=== PATIENT | male | born 1980 | race American Indian/Alaskan Native ===

== ENCOUNTER 2018-02-06 17:42 | Emergency (ER) | payer OTHER ==
[2018-02-06 18:00] VITALS: BP 124/75; PULSE 78; RESP 18; TEMP 97.6; O2SAT 100
[2018-02-06] MEDS ORDERED: Naproxen 500 MG TAB PO STA (18:09)
--- NOTE | 2018-02-06 18:09 | ED PDOC ---
Lower Extremity Pain/Injury Time Seen by Provider: 02/06/18 18:07 Chief Complaint (Nursing): Lower Extremity Problem/Injury Chief Complaint (Provider): LEFT FOOT PAIN History Per: Patient (37 Y/O MALE HERE WITH ONGOING LEFT FOOT PAIN. STATES HE NOTED PAIN 4 DAYS AGO AND HAS HAD HARD TIME BEARING WEIGHT ON FOOT. DENIES ANY TRAUMA. ) Past Medical History Reviewed: Historical Data, Nursing Documentation, Vital Signs Vital Signs: Last Vital Signs Temp 97.6 F 02/06/18 17:56 Pulse 78 02/06/18 17:56 Resp 18 02/06/18 17:56 BP 124/75 02/06/18 17:56 Pulse Ox 100 02/06/18 17:56 - Family History Family History: States: No Known Family Hx - Home Medications Home Medications: Ambulatory Orders Medication Instructions Recorded Naproxen 375 mg PO Q8 PRN #21 tablet 02/06/18 - Allergies Allergies/Adverse Reactions: Allergies Allergy/AdvReac Type Severity Reaction Status Date / Time No Known Allergies Allergy Verified 02/06/18 17:56 Review of Systems ROS Statement: Except As Marked, All Systems Reviewed And Found Negative Musculoskeletal: Positive for: Foot Pain Physical Exam - Reviewed Nursing Documentation Reviewed: Yes Vital Signs Reviewed: Yes - Physical Exam Appears: Positive for: Well, Non-toxic, No Acute Distress Head Exam: Positive for: ATRAUMATIC, NORMAL INSPECTION, NORMOCEPHALIC Skin: Positive for: Normal Color, Warm, DRY Eye Exam: Positive for: EOMI, Normal appearance, PERRL ENT: Positive for: Normal ENT Inspection Neck: Positive for: Normal, Painless ROM Cardiovascular/Chest: Positive for: Regular Rate, Rhythm Respiratory: Positive for: CNT, Normal Breath Sounds Gastrointestinal/Abdominal: Positive for: Normal Exam, Soft Back: Positive for: Normal Inspection Extremity: Positive for: Normal ROM, Tenderness (TENDERNESS NOTED THIRD DIGIT OF LEFT FOOT AND MID FOOT) Neurologic/Psych: Positive for: Alert, Oriented - ECG O2 Sat by Pulse Oximetry: 100 - Progress ED Course And Treament: XRY OF FOOT: FX OF PROXIMAL PHALANX THIRD DIGIT LEFT FOOT D/W PODIATRY RESIDENT WHO HAS SEEN PATIENT IN ED WE WILL BUDDYTAPE AND GIVE SURGICAL SHOE PATIENT TO F/U IN CLINIC NEXT TUESDAY. Disposition - Clinical Impression Clinical Impression: Toe fracture, left - Patient ED Disposition Is Patient to be Admitted: No - Disposition Referrals: Podiatry Clinic [Outside] Disposition: Routine/Home Disposition Time: 19:18 Condition: FAIR Additional Instructions: FOLLOW UP WITH PODIATRY CLINIC NEXT TUESDAY WITH DR MCNEIL Prescriptions: Naproxen 375 mg PO Q8 PRN #21 tablet PRN Reason: Pain, Moderate (4-7) Instructions: Toe Fracture Forms: [facility] ([place]ian), [facility] ED School/Work Excuse
[2018-02-06] MEDS ORDERED: Naproxen 500 MG TAB PO ONE (18:25)
--- NOTE | 2018-02-06 20:11 | CP.PCM.CON ---
History of Present Illness - History of Present Illness History of Present Illness: 37 y/o male seen and evaluated in ED for left foot 3rd toe pain. Pt states he noticed when he woke up this morning that it was painful to walk and his 3rd toe was beginning to swell up. 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 Has no other pedal complaints. Denies F/C/N/V/CP/SOB PMHx: denies PSHx: denies All: NKDA SocHx: social EtOH; 8-10 cigs/day; denies drug use Review of Systems - Review of Systems All systems: reviewed and no additional remarkable complaints except (per HPI) Past Patient History - Past Social History Smoking Status: Never Smoked - PSYCHIATRIC Hx Substance Use: Yes Meds Home Medications: Home Medication List Medication Instructions Recorded Confirmed Type Naproxen 375 mg PO Q8 PRN #21 tablet 02/06/18 Rx Allergies/Adverse Reactions: Allergies Allergy/AdvReac Type Severity Reaction Status Date / Time No Known Allergies Allergy Verified 02/06/18 17:56 Physical Exam - Constitutional Appears: Well, Non-toxic, No Acute Distress - Extremities Exam Extremities exam: Negative for: calf tenderness Additional comments: Left foot focused exam: Vasc: DP/PT pulses palpable 2/4. Temperature gradient warm to cool from proximal to distal. CFT < 3 sec to all digits. Localized non pitting edema noted to left foot 3rd digit Derm: No open lesions, no erythema, no ecchymosis Neuro: Protective sensation grossly intact Ortho: Mild-moderate tenderness to palpation of 3rd digit proximal phalanx. Tenderness elicited upon passive ROM of 3rd digit at MPJ - Neurological Exam Neurological exam: Alert, Oriented x3 - Psychiatric Exam Psychiatric exam: Normal Affect, Normal Mood Results - Vital Signs Recent Vital Signs: Last Vital Signs Temp 97.6 F 02/06/18 17:56 Pulse 78 02/06/18 17:56 Resp 18 02/06/18 17:56 BP 124/75 02/06/18 17:56 Pulse Ox 100 02/06/18 19:19 Assessment & Plan - Assessment and Plan (Free Text) Assessment: 37 y/o male with nondisplaced left foot oblique fracture of 3rd proximal phalanx Plan: Pt seen and evaluated in ED Discussed with attending Dr. Holman X-rays of L foot reveal oblique fx of left 3rd prox phalanx, non displaced Pt placed in mateo splint and dispensed surgical shoe for protected weight bearing Pt to follow up with Dr. Holman in [facility] on February 17 Thank you for this consult
--- NOTE | 2018-02-07 07:40 | RAD ---
PROCEDURE: Left Foot Radiographs. HISTORY: FOOT PAIN COMPARISON: None. FINDINGS: BONES: An oblique fracture involving the proximal phalanx of the left 3rd digit is identified appearing nondisplaced the likely non articular. No additional fracture throughout the remainder of the left foot. 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 JOINTS: No subluxation or dislocation. Mild hallux valgus deformity is identified. SOFT TISSUES: Normal. OTHER FINDINGS: None. IMPRESSION: 1. Oblique fracture proximal phalanx left 3rd digit. No dislocation or additional fracture throughout the remainder left foot. 2. Mild hallux valgus deformity.
== END 2018-02-06 19:33 | disposition home or self-care (01) ==
LOC: H.ER 17:42
DX: S92.515A Nondisplaced fracture of proximal phalanx of left lesser toe(s), initial encounter for closed fracture (principal); Y92.89 Other specified places as the place of occurrence of the external cause; M20.12 Hallux valgus (acquired), left foot